=== PATIENT | male | born 1955 | race Asian ===

== ENCOUNTER 2017-05-30 22:30 | Inpatient (IN) | payer OTHER ==
[2017-05-31] MEDS ORDERED: GLUCOSE GEL 15 GRAM TUBE PO ×2 (01:00)
[2017-05-31] MEDS ORDERED: morphine 2 MG INJ IV (01:00)
[2017-05-31] MEDS ORDERED: GLUCOSE GEL 15 GRAM TUBE BUCCAL (01:00)
[2017-05-31] MEDS ORDERED: GLUCAGON 1 MG INJ IM (01:00)
[2017-05-31] MEDS ORDERED: DEXTROSE 50% 50 ML SYRINGE IV ×2 (01:00)
[2017-05-31] MEDS: ACCU-CHEK XX (01:17)
[2017-05-31 01:24] LABS: ADD MAN DIFF? NO
[2017-05-31 01:27] LABS: BASOPHILS % 0.3 % (0.0-2.0); EOSINOPHILS # 0.1 10^3/ul (0.0-0.5); EOSINOPHILS % 1.5 % (0.0-7.0); HEMATOCRIT 30.5 % (42.0-52.0); LYMPHOCYTES # 1.5 10^3/ul (0.8-2.9); LYMPHOCYTES % 23.1 % (15.0-51.0); MEAN CORPUSCULAR HEMOGLOBIN 33.7 pg (29.0-33.0); MEAN CORPUSCULAR HGB CONC 32.8 g/dl (32.0-37.0); MEAN CORPUSCULAR VOLUME 102.7 fl (82.0-101.0); MEAN PLATELET VOLUME 8.4 fl (7.4-10.4); MONOCYTE # 0.5 10^3/ul (0.3-0.9); MONOCYTES % 8.2 % (0.0-11.0); NEUTROPHIL # 4.3 10^3/ul (1.6-7.5); NEUTROPHILS % 66.4 % (39.0-77.0); PLATELET COUNT 353 10^3/UL (140-415); RED BLOOD COUNT 2.97 10^6/ul (4.70-6.10); RED CELL DISTRIBUTION WIDTH 13.3 % (11.5-14.5)
[2017-05-31 01:27] LABS: WHITE BLOOD COUNT 6.5 10^3/ul (4.8-10.8)
[2017-05-31 02:07] LABS: ALANINE AMINOTRANSFERASE 28 IU/L (13-69); ALBUMIN 3.5 g/dl (3.3-4.9); ALBUMIN/GLOBULIN RATIO 1.06; ALKALINE PHOSPHATASE 89 IU/L (42-121); ANION GAP 13 (8-16); ASPARTATE AMINO TRANSFERASE 32 IU/L (15-46); BLOOD UREA NITROGEN 30 mg/dl (7-20); CARBON DIOXIDE 28 mmol/L (21-31); CHLORIDE 103 mmol/L (97-110); CREATINE KINASE 25 IU/L (23-200); CREATININE 1.89 mg/dl (0.61-1.24); GLUCOSE 177 mg/dl (70-220); MAGNESIUM 1.3 mg/dl (1.7-2.5); PHOSPHORUS 4.1 mg/dl (2.5-4.9); POTASSIUM 4.6 mmol/L (3.5-5.1); SODIUM 139 mmol/L (135-144); TOTAL PROTEIN 6.8 g/dl (6.1-8.1)
[2017-05-31 02:17] LABS: CK INDEX 1.7; TROPONIN-I 0.014 ng/ml (0.00-0.12)
[2017-05-31 02:34] LABS: CK-MB 0.43 ng/ml (0.0-2.4)
[2017-05-31 02:36] LABS: THYROID STIMULATING HORMONE 0.168 MIU/L (0.465-4.680)
[2017-05-31] MEDS: MAGNESIUM SULFATE 3 GM in DEXTROSE 5% 100 ML IVPB (06:12)
[2017-05-31] MEDS: INSULIN ASPART [NOVOLOG] 3 ML PEN SC ×4 (08:26→21:00)
[2017-05-31] MEDS: HEPARIN 5,000 UNIT/0.5 ML VIAL SC ×2 (09:34→22:10)
[2017-05-31] MEDS ORDERED: ACETAMINOPHEN 325 MG TAB PO (17:00)
[2017-05-31] MEDS: HYDROmorphONE 1 MG/ML SYG IV (19:52)
[2017-05-31] MEDS: morphine (ER) 15 MG TAB PO (21:00)
[2017-05-31] MEDS: DOCUSATE SODIUM 100 MG CAP PO (21:59)
[2017-05-31] MEDS: DICYCLOMINE 10 MG CAP PO (22:00)
[2017-05-31] MEDS: ATORVASTATIN 40 MG TAB PO (22:01)
[2017-05-31] MEDS: INSULIN GLARGINE [LANtus] 3 ML PEN SC (22:08)
[2017-06-01] MEDS: ACCU-CHEK XX (02:00)
[2017-06-01] MEDS: HYDROmorphONE 1 MG/ML SYG IV (06:41)
[2017-06-01] MEDS: LEVOTHYROXINE 175 MCG TAB PO (06:41)
[2017-06-01 07:37] LABS: ADD MAN DIFF? NO
[2017-06-01 07:43] LABS: BASOPHILS % 0.5 % (0.0-2.0); EOSINOPHILS # 0.2 10^3/ul (0.0-0.5); EOSINOPHILS % 2.8 % (0.0-7.0); HEMATOCRIT 31.2 % (42.0-52.0); HEMOGLOBIN 10.1 g/dl (14.0-18.0); LYMPHOCYTES # 1.7 10^3/ul (0.8-2.9); LYMPHOCYTES % 28.5 % (15.0-51.0); MEAN CORPUSCULAR HEMOGLOBIN 32.8 pg (29.0-33.0); MEAN CORPUSCULAR HGB CONC 32.4 g/dl (32.0-37.0); MEAN CORPUSCULAR VOLUME 101.3 fl (82.0-101.0); MEAN PLATELET VOLUME 8.9 fl (7.4-10.4); MONOCYTE # 0.4 10^3/ul (0.3-0.9); MONOCYTES % 7.3 % (0.0-11.0); NEUTROPHIL # 3.6 10^3/ul (1.6-7.5); NEUTROPHILS % 60.4 % (39.0-77.0); PLATELET COUNT 369 10^3/UL (140-415); POSITIVE DIFF @See below; RED BLOOD COUNT 3.08 10^6/ul (4.70-6.10); RED CELL DISTRIBUTION WIDTH 13.3 % (11.5-14.5)
[2017-06-01] MEDS: INSULIN ASPART [NOVOLOG] 3 ML PEN SC ×4 (07:55→21:00)
[2017-06-01 08:15] LABS: BLOOD UREA NITROGEN 20 mg/dl (7-20); CALCIUM 9.3 mg/dl (8.4-10.2); CARBON DIOXIDE 28 mmol/L (21-31); CHLORIDE 104 mmol/L (97-110); GLUCOSE 144 mg/dl (70-220); SODIUM 142 mmol/L (135-144)
[2017-06-01] MEDS: FERROUS SULFATE (EC) 325 MG TAB PO (08:18)
[2017-06-01] MEDS: FUROSEMIDE 20 MG TAB PO (08:18)
[2017-06-01] MEDS: DOCUSATE SODIUM 100 MG CAP PO ×2 (08:19→21:18)
[2017-06-01] MEDS: GABAPENTIN 300 MG CAP PO (08:19)
[2017-06-01] MEDS: TAMSULOSIN (SR) 0.4 MG CAP PO (08:20)
[2017-06-01] MEDS: DICYCLOMINE 10 MG CAP PO ×2 (08:20→21:18)
[2017-06-01] MEDS: HEPARIN 5,000 UNIT/0.5 ML VIAL SC ×2 (08:21→21:18)
[2017-06-01] MEDS: morphine (ER) 15 MG TAB PO ×3 (08:23→21:19)
[2017-06-01 08:24] LABS: ANION GAP 15 (8-16)
[2017-06-01 08:27] LABS: POTASSIUM 4.8 mmol/L (3.5-5.1)
[2017-06-01] MEDS: ACETAMINOPHEN 1000MG/100ML IV 100 ML IVPB ×3 (12:49→23:00)
[2017-06-01] MEDS: SOD CHLORIDE 0.9% 500 ML IV (16:20)
[2017-06-01] MEDS: INSULIN GLARGINE [LANtus] 3 ML PEN SC (21:17)
[2017-06-01] MEDS: ATORVASTATIN 40 MG TAB PO (21:18)
[2017-06-02] MEDS: SOD CHLORIDE 0.9% 500 ML IV (01:15)
[2017-06-02] MEDS: MIDODRINE 5 MG TAB PO ×5 (02:01→19:43)
[2017-06-02] MEDS: ACCU-CHEK XX (02:02)
[2017-06-02] MEDS: ACETAMINOPHEN 1000MG/100ML IV 100 ML IVPB ×4 (05:00→23:00)
[2017-06-02] MEDS: LEVOTHYROXINE 175 MCG TAB PO (07:03)
[2017-06-02] MEDS: INSULIN ASPART [NOVOLOG] 3 ML PEN SC ×4 (08:00→20:49)
[2017-06-02] MEDS: POLYETHYLENE GLYCOL 17 GM PACKET PO (09:23)
[2017-06-02] MEDS: FUROSEMIDE 20 MG TAB PO (09:25)
[2017-06-02] MEDS: HEPARIN 5,000 UNIT/0.5 ML VIAL SC ×2 (09:25→20:51)
[2017-06-02] MEDS: DICYCLOMINE 10 MG CAP PO (09:26)
[2017-06-02] MEDS: morphine (ER) 15 MG TAB PO (09:26)
[2017-06-02] MEDS: TAMSULOSIN (SR) 0.4 MG CAP PO (09:26)
[2017-06-02] MEDS: DOCUSATE SODIUM 100 MG CAP PO ×2 (09:26→20:50)
[2017-06-02] MEDS: GABAPENTIN 300 MG CAP PO (09:26)
[2017-06-02 09:31] LABS: WHITE BLOOD COUNT 8.6 10^3/ul (4.8-10.8)
[2017-06-02 09:31] LABS: HEMATOCRIT 30.6 % (42.0-52.0); HEMOGLOBIN 9.8 g/dl (14.0-18.0); MEAN CORPUSCULAR HEMOGLOBIN 32.7 pg (29.0-33.0); MEAN PLATELET VOLUME 9.2 fl (7.4-10.4); PLATELET COUNT 342 10^3/UL (140-415); POSITIVE DIFF @See below; RED CELL DISTRIBUTION WIDTH 13.3 % (11.5-14.5)
[2017-06-02 09:39] LABS: ADD MAN DIFF? YES
[2017-06-02 10:01] LABS: BLOOD UREA NITROGEN 21 mg/dl (7-20); CALCIUM 8.9 mg/dl (8.4-10.2); CARBON DIOXIDE 26 mmol/L (21-31); CHLORIDE 106 mmol/L (97-110); CREATININE 1.22 mg/dl (0.61-1.24); GLUCOSE 145 mg/dl (70-220); SODIUM 140 mmol/L (135-144)
[2017-06-02 10:09] LABS: ANION GAP 13 (8-16)
[2017-06-02 10:13] LABS: POTASSIUM 4.5 mmol/L (3.5-5.1)
[2017-06-02 10:32] LABS: BAND NEUTROPHILS #M 0.5 10^3/ul (0.0-0.6); BAND NEUTROPHILS % (M) 6 % (0-4); LYMPHOCYTES % (M) 12 % (15-51); MONOCYTE #M 0.2 10^3/ul (0.3-0.9); MONOCYTES % (M) 3 % (0-11); PLATELET ESTIMATE NORMAL; POLYCHROMASIA 1+ (0-0); REACTIVE LYMPHOCYTES #M 0.2 10^3/ul (0.0-0.0); REACTIVE LYMPHOCYTES% (M) 3 % (0-0); SEG NEUT #M 6.6 10^3/ul (1.6-7.5); SEGMENTED NEUTROPHILS (M) % 76 % (39-77); SMUDGE%M 10 % (0-0)
[2017-06-02] MEDS: ONDANSETRON 4 MG INJ IV (15:13)
[2017-06-02] MEDS ORDERED: traMADol 50 MG TAB PO (16:00)
[2017-06-02] MEDS: MAGNESIUM HYDROXIDE 30ML CUP PO (17:58)
[2017-06-02] MEDS: BISACODYL (EC) 5 MG TAB PO (17:58)
[2017-06-02] MEDS: INSULIN GLARGINE [LANtus] 3 ML PEN SC (20:00)
[2017-06-02] MEDS: ATORVASTATIN 40 MG TAB PO (20:50)
[2017-06-03] MEDS: ACCU-CHEK XX (02:00)
[2017-06-03] MEDS: ACETAMINOPHEN 1000MG/100ML IV 100 ML IVPB ×2 (05:00→11:00)
[2017-06-03] MEDS: LEVOTHYROXINE 175 MCG TAB PO (06:50)
[2017-06-03] MEDS: INSULIN ASPART [NOVOLOG] 3 ML PEN SC ×2 (08:00→12:18)
[2017-06-03] MEDS: ONDANSETRON 4 MG INJ IV ×2 (08:35→13:06)
[2017-06-03] MEDS: GABAPENTIN 300 MG CAP PO (08:35)
[2017-06-03 08:38] LABS: ADD MAN DIFF? NO
[2017-06-03] MEDS: HEPARIN 5,000 UNIT/0.5 ML VIAL SC (08:43)
[2017-06-03] MEDS: POLYETHYLENE GLYCOL 17 GM PACKET PO (08:44)
[2017-06-03] MEDS: DOCUSATE SODIUM 100 MG CAP PO (08:44)
[2017-06-03 08:56] LABS: WHITE BLOOD COUNT 7.4 10^3/ul (4.8-10.8)
[2017-06-03 08:56] LABS: BASOPHILS % 0.3 % (0.0-2.0); EOSINOPHILS # 0.2 10^3/ul (0.0-0.5); EOSINOPHILS % 3.3 % (0.0-7.0); HEMATOCRIT 33.1 % (42.0-52.0); HEMOGLOBIN 10.8 g/dl (14.0-18.0); LYMPHOCYTES # 2.2 10^3/ul (0.8-2.9); LYMPHOCYTES % 29.9 % (15.0-51.0); MEAN CORPUSCULAR HEMOGLOBIN 33.1 pg (29.0-33.0); MEAN CORPUSCULAR HGB CONC 32.6 g/dl (32.0-37.0); MEAN CORPUSCULAR VOLUME 101.5 fl (82.0-101.0); MEAN PLATELET VOLUME 9.3 fl (7.4-10.4); MONOCYTE # 0.7 10^3/ul (0.3-0.9); MONOCYTES % 8.9 % (0.0-11.0); NEUTROPHIL # 4.2 10^3/ul (1.6-7.5); NEUTROPHILS % 57.2 % (39.0-77.0); PLATELET COUNT 419 10^3/UL (140-415); RED BLOOD COUNT 3.26 10^6/ul (4.70-6.10); RED CELL DISTRIBUTION WIDTH 13.2 % (11.5-14.5)
[2017-06-03 09:17] LABS: HEMOGLOBIN A1C 6.6 % (0-5.9)
[2017-06-03 09:22] LABS: ANION GAP 13 (8-16); BLOOD UREA NITROGEN 24 mg/dl (7-20); CALCIUM 9.7 mg/dl (8.4-10.2); CARBON DIOXIDE 33 mmol/L (21-31); CHLORIDE 102 mmol/L (97-110); CREATININE 1.37 mg/dl (0.61-1.24); GLUCOSE 143 mg/dl (70-220); POTASSIUM 4.9 mmol/L (3.5-5.1); SODIUM 143 mmol/L (135-144)
[2017-06-03 09:30] LABS: CHOL/HDL RATIO 6.2 RATIO; CHOLESTEROL 163 mg/dl (100-200); HDL CHOLESTEROL 26 mg/dl (30-78); LDL CHOLESTEROL,CALCULATED 99 mg/dl; MAGNESIUM 1.6 mg/dl (1.7-2.5); TRIGLYCERIDES 190 mg/dl (0-149)
[2017-06-03 09:33] LABS: THYROID STIMULATING HORMONE 0.277 MIU/L (0.465-4.680)
[2017-06-03 09:46] LABS: FREE T4 (FREE THYROXINE) 1.53 ng/dl (0.78-2.44)
[2017-06-03] MEDS: MIDODRINE 5 MG TAB PO (13:06)
== END 2017-06-03 16:37 | disposition hospice, home (50) | DRG 683 ==
LOC: MS4 22:30
PROVIDERS: Internal Medicine
DX: N17.9 Acute kidney failure, unspecified (principal); C78.7 Secondary malignant neoplasm of liver and intrahepatic bile duct; I95.2 Hypotension due to drugs; I10 Essential (primary) hypertension; D64.9 Anemia, unspecified; C11.9 Malignant neoplasm of nasopharynx, unspecified; E11.9 Type 2 diabetes mellitus without complications; T40.2X5A Adverse effect of other opioids, initial encounter; E03.9 Hypothyroidism, unspecified; Z87.891 Personal history of nicotine dependence; Z79.4 Long term (current) use of insulin
CPT/HCPCS: 70450; 80048; 80053; 80061; 82550; 82553; 82962; 83036; 83735; 84100; 84439; 84443; 84484; 85025; 87081

== ENCOUNTER 2017-06-06 15:00 | Outpatient (CLI) | payer OTHER | END 2017-06-06 15:51 | disposition home or self-care (01) | LOC: DCC 15:00 | DX: C11.9 Malignant neoplasm of nasopharynx, unspecified (principal); N28.9 Disorder of kidney and ureter, unspecified; E11.9 Type 2 diabetes mellitus without complications; I10 Essential (primary) hypertension; E78.5 Hyperlipidemia, unspecified; D64.9 Anemia, unspecified; M54.2 Cervicalgia | CPT/HCPCS: G0463 ==